=== PATIENT | male | born 1945 ===

== ENCOUNTER 2023-05-19 12:57 | Emergency (ER) | payer SELFPAY ==
[2023-05-19] MEDS ORDERED: Sodium Chloride 0.9% 2.5 ML Syringe FLUSH PRN (13:28)
[2023-05-19] MEDS ORDERED: Sodium Chloride 0.9% 1,000 ML IV ONE ×2 (13:28→15:10)
[2023-05-19] MEDS ORDERED: Sodium Chloride 0.9% 10 ML Syringe FLUSH PRN (13:28)
[2023-05-19] MEDS ORDERED: Ondansetron 4 MG/2 ML SDV IVPUSH ONE (13:32)
[2023-05-19 14:08] LABS: BASOPHILS ABSOLUTE AUTO 0.07 K/uL (0.00-0.20); BASOPHILS PERCENT AUTO 0.7 % (0.0-1.0); EOSINOPHILS ABSOLUTE AUTO 0.27 K/uL (0.00-0.45); EOSINOPHILS PERCENT AUTO 2.7 % (0.0-6.0); HEMATOCRIT 50.6 % (42.0-52.0); HEMOGLOBIN 17.9 g/dL (14.0-18.0); IMMATURE GRAN ABSOLUTE AUTO 0.04 K/uL (0.00-0.05); IMMATURE GRAN PERCENT AUTO 0.4 % (0.0-0.4); LYMPHOCYTES ABSOLUTE AUTO 1.16 K/uL (1.00-4.80); LYMPHOCYTES PERCENT AUTO 11.5 % (24.0-44.0); MEAN CORPUSCULAR HEMOGLOBIN 31.2 pg (28.0-32.0); MEAN CORPUSCULAR HGB CONC 35.4 g/dL (32.0-36.0); MEAN CORPUSCULAR VOLUME 88.3 fL (83.0-99.0); MEAN PLATELET VOLUME 10.5 fL (9.4-12.4); MONOCYTES ABSOLUTE AUTO 0.52 K/uL (0.00-0.80); MONOCYTES PERCENT AUTO 5.1 % (0.0-8.0); NEUTROPHILS ABSOLUTE AUTO 8.06 K/uL (1.80-7.70); NEUTROPHILS PERCENT AUTO 79.6 % (41.0-71.0); PLATELET COUNT,PLT 314 K/uL (150-400); RED BLOOD CELL COUNT 5.73 M/uL (4.52-5.90); WHITE BLOOD CELL COUNT,WBC 10.12 K/uL (3.9-11.3)
[2023-05-19 14:10] LABS: APPEARANCE,URINE CLEAR; BILIRUBIN,URINE NEGATIVE (NEGATIVE); COLOR,URINE YELLOW; GLUCOSE,URINE >=1000 mg/dL (NEGATIVE); KETONES,URINE 15 mg/dL (NEGATIVE); LEUKOCYTE ESTERASE,URINE NEGATIVE (NEGATIVE); NITRITE,URINE NEGATIVE (NEGATIVE); OCCULT BLOOD,URINE NEGATIVE (NEGATIVE); PROTEIN,URINE NEGATIVE (NEGATIVE); UROBILINOGEN,URINE 0.2 EU/dL (<2.0)
[2023-05-19 14:11] LABS: PH,VENOUS 7.38 (7.31-7.41)
[2023-05-19 14:12] LABS: BASE EXCESS VENOUS 4.9 (-2.0-3.0); BICARBONATE,VENOUS 32 mEq/L (23-28); PCO2 VENOUS 55 mmHG (41-51); PO2 VENOUS < 30 mmHG
[2023-05-19 14:37] LABS: INR 1.07 (0.86-1.11)
[2023-05-19 14:40] LABS: LACTIC ACID 1.7 mmol/L (0.4-2.0)
[2023-05-19 14:42] LABS: ALBUMIN 4.2 g/dL (3.4-5.0); BILIRUBIN TOTAL 0.8 mg/dL (0.2-1.0); CARBON DIOXIDE,CO2 31.2 mmol/L (21.0-32.0); CREATININE 1.1 mg/dL (0.8-1.3); EST CRCL DRUG DOSING (CG) 47.37 mL/min; MAGNESIUM 1.7 mg/dL (1.8-2.4); POTASSIUM,K 4.9 mmol/L (3.5-5.1); PROTEIN TOTAL,TP 8.6 g/dL (6.4-8.2); TSH ULTRASENSITIVE 0.88 uIU/mL (0.36-3.74)
[2023-05-19] MEDS ORDERED: Insulin Regular, Human 100 Units/ML 10 ML Vial IVPUSH ONE (15:11)
[2023-05-19] MEDS ORDERED: Iopamidol 755 MG/ML 500 ML Multipack Bottle IVPUSH STA (16:32)
== END 2023-05-19 19:26 | disposition home or self-care (01) ==
LOC: MW.ED 12:57
DX: E11.65 Type 2 diabetes mellitus with hyperglycemia (principal); R00.0 Tachycardia, unspecified; E78.00 Pure hypercholesterolemia, unspecified; I10 Essential (primary) hypertension; Z20.822 Contact with and (suspected) exposure to COVID-19; Z79.84 Long term (current) use of oral hypoglycemic drugs; Z79.4 Long term (current) use of insulin; Z79.899 Other long term (current) drug therapy
CPT/HCPCS: 36415; 70450; 71045; 71275; 74177; 80053; 81003; 82009; 82803; 82947; 83605; 83690; 83735; 83880; 84443; 84484; 85025; 85379; 85610; 87040; 87635; 93005; 96361; 96374; 99284; J1815; J2405; J3490; J7030; Q9967; 93010; U0002

== ENCOUNTER 2024-03-23 18:11 | Emergency (ER) | payer MEDICARE, MEDICAID ==
[2024-03-23 19:28] LABS: BASOPHILS ABSOLUTE AUTO 0.05 K/uL (0.00-0.20); BASOPHILS PERCENT AUTO 0.5 % (0.0-1.0); EOSINOPHILS ABSOLUTE AUTO 0.72 K/uL (0.00-0.45); EOSINOPHILS PERCENT AUTO 7.5 % (0.0-6.0); HEMATOCRIT 38.7 % (42.0-52.0); HEMOGLOBIN 13.6 g/dL (14.0-18.0); IMMATURE GRAN ABSOLUTE AUTO 0.02 K/uL (0.00-0.05); IMMATURE GRAN PERCENT AUTO 0.2 % (0.0-0.4); LYMPHOCYTES ABSOLUTE AUTO 1.47 K/uL (1.00-4.80); LYMPHOCYTES PERCENT AUTO 15.3 % (24.0-44.0); MEAN CORPUSCULAR HEMOGLOBIN 30.8 pg (28.0-32.0); MEAN CORPUSCULAR HGB CONC 35.1 g/dL (32.0-36.0); MEAN CORPUSCULAR VOLUME 87.8 fL (83.0-99.0); MEAN PLATELET VOLUME 9.2 fL (9.4-12.4); MONOCYTES ABSOLUTE AUTO 0.75 K/uL (0.00-0.80); MONOCYTES PERCENT AUTO 7.8 % (0.0-8.0); NEUTROPHILS PERCENT AUTO 68.7 % (41.0-71.0); PLATELET COUNT,PLT 307 K/uL (150-400); RED BLOOD CELL COUNT 4.41 M/uL (4.52-5.90); WHITE BLOOD CELL COUNT,WBC 9.61 K/uL (3.9-11.3)
[2024-03-23 20:02] LABS: A/G RATIO 0.9 (0.9-1.6); BILIRUBIN TOTAL 0.3 mg/dL (0.2-1.0); C-REACTIVE PROTEIN 2.83 mg/dL (<0.3); CREATININE 0.8 mg/dL (0.8-1.3); EST CRCL DRUG DOSING (CG) 61.67 mL/min; POTASSIUM,K 4.7 mmol/L (3.5-5.1); PROTEIN TOTAL,TP 6.4 g/dL (6.4-8.2)
[2024-03-23] MEDS: Ibuprofen 600 MG Tab PO ONE (20:28)
[2024-03-23 20:49] LABS: APPEARANCE,URINE SLT CLOUDY; COLOR,URINE YELLOW; GLUCOSE,URINE 250 mg/dL (NEGATIVE); KETONES,URINE TRACE mg/dL (NEGATIVE); LEUKOCYTE ESTERASE,URINE NEGATIVE (NEGATIVE); NITRITE,URINE NEGATIVE (NEGATIVE); OCCULT BLOOD,URINE NEGATIVE (NEGATIVE); PH,URINE 5.5 (5.0-8.0); PROTEIN,URINE NEGATIVE (NEGATIVE)
[2024-03-23] MEDS: Cefdinir 300 MG Cap PO ONE (20:52)
[2024-03-23 20:56] LABS: BILIRUBIN,URINE SMALL (NEGATIVE)
== END 2024-03-23 20:54 | disposition home or self-care (01) ==
LOC: MW.ED 18:11
DX: L03.113 Cellulitis of right upper limb (principal); I10 Essential (primary) hypertension; E78.00 Pure hypercholesterolemia, unspecified; E11.9 Type 2 diabetes mellitus without complications; Z79.2 Long term (current) use of antibiotics; Z79.84 Long term (current) use of oral hypoglycemic drugs; Z79.4 Long term (current) use of insulin; Z79.899 Other long term (current) drug therapy; Z75.8 Other problems related to medical facilities and other health care
CPT/HCPCS: 36415; 80053; 81003; 85025; 85652; 86140; 99283; A9270; 99284